=== PATIENT | female | born 1970 | race African-American/Black ===

== ENCOUNTER 2016-05-29 02:54 | Emergency (ER) | payer MEDICAID, OTHER ==
[~2016-05-29] VITALS: Ht 170.2 cm; Wt 89.0 kg
[~2016-05-29 02:54] MED LIST: ALBU0.086 INH; ALBU8I INH; BENZ1CAP34 PO; IBUP800T23 PO
[2016-05-29 02:57] VITALS: BP 146/87; PULSE 98; RESP 15; TEMP 97.6; O2SAT 95
[2016-05-29] MEDS ORDERED: AZIT250T3 PO (04:31)
[2016-05-29] MEDS ORDERED: PRED20 PO (04:31)
--- NOTE | 2016-05-29 04:32 | PD ---
HPI Chief Complaint: Cold / Flu Symptoms Time Seen by Provider: 04:03 Travel History International Travel<30 days: No Contact w/Intl Traveler<30days: No Traveled to known affect area: No History of Present Illness HPI Patient is a 46 year old female presents to the ER for complaints of non- productive cough, congestion over the past few weeks. Patient is smoker. States she has been taking treatments at home with modest success. She is more concerned over the cough. Denies fever, denies sputum production, denies CP, denies blood clot history. PFSH Past Medical History Asthma: Yes Respiratory: Yes (ASTHMA) ?: Not Past Surgical History Surgical History: No Previous Surgery Social History Alcohol Use: Yes Tobacco Use: Yes Substance Use: No Allergies-Medications (Allergen,Severity, Reaction): Coded Allergies: No Known Allergies (Unverified , 05/29/16) Reported Meds & Prescriptions Reported Meds & Active Scripts Active Mucinex DM (Dextromethorphan-Guaifenesin) 30-600 Mg Tab 1 Tab PO BID PRN Azithromycin 250 Mg Tab 250 Mg PO DIRECTED Take 2 tabs (500 mg) on day 1 then 1 tab daily x 4 days. Prednisone 20 Mg Tab 60 Mg PO DAILY 5 Days Ventolin Hfa (Albuterol Sulfate) 8 Gm Aero 2 Puff INH Q4 PRN * SHAKE WELL BEFORE USE * Proventil Ud 0.083% (2.5 Mg/3 Ml) (Albuterol Sulfate) 2.5 Mg/3 Ml Inha 2.5 Mg INH Q4 Review of Systems Except as stated in HPI: all other systems reviewed are Neg Physical Exam Narrative GENERAL: WD/WN in nad SKIN: Warm and dry. No rash. HEAD: Atraumatic. Normocephalic. EYES: Pupils equal and round. No scleral icterus. No injection or drainage. ENT: No nasal bleeding or discharge. Mucous membranes pink and moist. Tm's clear bilaterally. NECK: Trachea midline. No JVD. CARDIOVASCULAR: Regular rate and rhythm. RESPIRATORY: No accessory muscle use. Clear to auscultation. Breath sounds equal bilaterally. GASTROINTESTINAL: Abdomen soft, non-tender, nondistended. Hepatic and splenic margins not palpable. MUSCULOSKELETAL: Extremities without clubbing, cyanosis, or edema. No obvious deformities. NEUROLOGICAL: Awake and alert. No obvious cranial nerve deficits. Motor grossly within normal limits. Five out of 5 muscle strength in the arms and legs. Normal speech. PSYCHIATRIC: Appropriate mood and affect; insight and judgment normal. Data Data Last Documented VS Orders Chest, Pa & Lat (05/29/16 ) Ed Urine Pregnancytest Poc (05/29/16 04:36) [facility] Medical Decision Making Medical Screen Exam Complete: Yes Emergency Medical Condition: Yes Differential Diagnosis URI, Bronchitis, PNA,asthma history. Narrative Course Patient roomed in the ED. Appears well. Lung sounds clear. Offered treatment and she declined citing didn't need. CXR negative. Likely bronchitis. Discussed smoking cessation as can lead to several health problems. Patient on revisit has secondary complaint of only getting her period every 6 months for the past few years. She is concerned she might be despite negative home test. test in ER is negative. Discussed need for follow up with PCP and OBGYN, [place] for discharge. Diagnosis Primary Impression: Bronchitis Med/Other Pt SpecificInfo: Prescription(s) given Scripts Dextromethorphan-Guaifenesin (Mucinex DM)30-600 Mg Tab1 Tab PO BID PRN (CHEST CONGESTION AND/OR COUGH) #30 TAB Ref 0 Prov:Robinson Ratliff MD 05/29/16 Azithromycin 250 Mg [id number] Mg PO DIRECTED #6 TAB Ref 0 Take 2 tabs (500 mg) on day 1 then 1 tab daily x 4 days. Prov:Robinson Ratliff MD 05/29/16 Prednisone 20 Mg Tab60 Mg PO DAILY 5 Days Ref 0 Prov:Robinson Ratliff MD 05/29/16 Disposition: 01 DISCHARGE HOME Condition: Stable Robinson Ratliff MD May 29, 2016 04:31
[2016-05-29] MEDS ORDERED: MUCI30TA2 PO (04:39)
--- NOTE | 2016-05-29 04:48 | RADRPT ---
EXAM DATE/TIME: 05/29/2016 04:20 [place] COMPARISON: No previous studies available for comparison. INDICATIONS : Shortness of breath, difficulty breathing for 2 days MEDICAL HISTORY : Asthma SURGICAL HISTORY : None. ENCOUNTER: Initial ACUITY: 1 day PAIN SCORE: 0/10 LOCATION: Bilateral chest FINDINGS: PA and lateral views of the chest demonstrate the lungs to be symmetrically aerated without evidence of mass, infiltrate or effusion. The cardiomediastinal contours are unremarkable. Osseous structure s are intact. CONCLUSION: No acute disease. Chris Lerma Jr., MD on May 29, 2016 at 4:46 Board Certified Radiologist. This report was verified electronically.
== END 2016-05-29 06:08 | disposition home or self-care (01) ==
LOC: NEPC 02:54
DX: J40 Bronchitis, not specified as acute or chronic (principal)
CPT/HCPCS: 71020; 84703; 99283